=== PATIENT | male | born 1950 | race Caucasian/White ===

== ENCOUNTER 2017-11-08 14:28 | Outpatient (RCR) | payer MEDICARE, OTHER ==
[2016-03-24 08:56] VITALS: BMI 19.9
[~2017-11-08 14:28] MED LIST: ACE3 PO; ASPI81TA94 PO; CHOL10005 PO; CINN500C12 PO; CITA-156 PO; COQ10; GABA-549 PO; HYOS0.1224 SL; INSU100V24 SQ; L.AC1CAP6; LANI SUBQ; LEVO-85 PO; LEVO200T50 PO; LISI-353 PO; LISI-362 PO; METH-278 PO; METR-160 PO; ONDA4TAB PO; PANT40TA65 PO; PRAV20TA66 PO; SUCR1TAB51 PO; TIZA-128 PO; UBID30CA27 PO; VITA150T2 PO; ZINC; ZINC30TA5 PO; [UNRECOGNIZED DRUG - OTHER]
--- NOTE | 2017-11-09 15:55 | Medical Nutrition Therapy ---
Nutritional Education Nutrition Education Topic: Diabetic Nutrition Learning Readiness: Interested Teaching Methods: Discussion, Handout, Demonstration Response to Teaching: Verbalize understanding Teaching Recipient: Patient, Significant Other Nutrition Counseling: Reviewed free style alba and intserted sensor. Nutrition Monitoring & Eval RD Patient Assessment Time: 60 minutes Nutritional Comment: Procied 60 minutes diabetes education focusoing on CGM. Copies To Copies to: RICKIE CUETO ; CATE BONNER Nov 08, 2017 15:57
== END 2017-12-13 ==
LOC: DIET 14:28
PROVIDERS: ATTEND Nurse Practitioner Psychiatric/Mental Health
DX: Z71.3 Dietary counseling and surveillance (principal); E10.8 Type 1 diabetes mellitus with unspecified complications; Z79.4 Long term (current) use of insulin
CPT/HCPCS: G0108 ×2

== ENCOUNTER 2018-08-29 16:33 | Emergency (ER) | payer MEDICARE, OTHER ==
[2016-03-24 08:56] VITALS: Wt 68.0 kg
[~2018-08-29 16:33] MED LIST changes: -METR-160 PO; +METR500T15 PO
[2018-08-29 17:11] VITALS: BP 169/92
--- NOTE | 2018-08-29 17:13 | ER Report ---
History and Physical Time Seen By MD: 17:10 (JERICA SLATER MD) Time Seen By MD: 17:00 (ANA ROSA SLATER MD) HPI/ROS CHIEF COMPLAINT: Abdominal pain HISTORY OF PRESENT ILLNESS: 68-year-old male has had no abdominal pain for one week. Patient states he has had similar pain in the past. He states it is lorena ewhat similar to when he had a bleeding ulcer that required repair by Dr. Mitchell. Patient states pain has been gradual. It is located epigastric as well as left sided. Patient has not had vomiting or bloody or black stool. He has had nausea. He does not know what makes the pain better or worse. Pain is mild to moderate. He has not taken anything for the pain. He does say he has pantoprazole which he is no longer taking. He has not have chest pain or shortness of breath. Pain does not radiate to his back. REVIEW OF SYSTEMS: Constitutional: No fever, no chills. Eyes: No discharge. ENT: No sore throat. Cardiovascular: No chest pain, no palpitations. Respiratory: No cough, no shortness of breath. Gastrointestinal: above Genitourinary: No hematuria. Musculoskeletal: No back pain. Skin: No rashes. Neurological: No headache. Remainder of the 14 system rev: Yes (ANA ROSA SLATER MD) Allergies: Coded Allergies: morphine (Verified Allergy, Intermediate, ANAPHYLAXIS, 08/29/18) Home Meds Active Scripts Pantoprazole Sodium (PANTOPRAZOLE SODIUM) 40 Mg Tablet.dr, 40 MG PO BID, #60 TAB 3 Refills Prov:GERALD STOKES MD 03/30/16 Reported Medications Gabapentin (GABAPENTIN) 300 Mg Capsule, 100-200 MG PO BID, CAPSULE 03/23/16 Lisinopril (LISINOPRIL) 10 Mg Tablet, 10 MG PO QDAY, TAB 03/23/16 Insulin Lispro 100 Un/Ml Vial (HUMALOG 100 U/ML VIAL) 100 Unit/1 Ml Vial, UNIT SQ TIDAC, VIAL 05/13/14 Pravastatin Sodium (PRAVASTATIN SODIUM) 20 Mg Tablet, 20 MG PO QDAY 05/13/14 Levothyroxine Sodium (LEVOTHYROXINE SODIUM) 200 Mcg Tablet, 200 MCG PO QDAY 05/13/14 Citalopram Hydrobromide (CELEXA) 20 Mg Tablet, 20 MG PO QDAY, #5 TAB TAKE 1 TABLET BY MOUTH EVERY DAY 05/13/14 Discontinued Reported Medications Methocarbamol (METHOCARBAMOL) 500 Mg Tablet, 500 MG PO BID PRN for BACK PAIN 03/23/16 Hyoscyamine Sulfate (HYOSCYAMINE SULFATE) 0.125 Mg Tab.subl, 0.125 MG SL Q4-6H 03/23/16 Ondansetron (ZOFRAN ODT) 4 Mg Tab.rapdis, 8 MG PO Q8H PRN for NAUSEA, TAB.YASMINE 03/23/16 L.acidoph & Paracasei,B.lactis (Probiotic) 1 Each Capsule 03/23/16 Vitamin B Complex & Vit C No.4 (SUPER B COMPLEX) 150 Mg Tablet, 150 MG PO QDAY 03/23/16 Cholecalciferol (Vitamin D3) (VITAMIN D3) 1,000 Unit Tablet, 1000 UNIT PO QDAY, TAB 03/23/16 Zinc Gluconate (ZINC) 30 Mg Tablet, 30 MG PO DAILY 06/26/14 Ubidecarenone (COQ-10) 30 Mg Capsule, 30 MG PO DAILY, CAPSULE 06/26/14 Insulin Glargine (LANTUS) 100 Unit/Ml Soln, 10.5 UNIT SUBQ BIDAC 05/13/14 Cinnamon Bark (CINNAMON) 500 Mg Capsule, 1000 MG PO DAILY, CAPSULE 05/13/14 Discontinued Scripts Sucralfate (SUCRALFATE) 1 Gm Tablet, 1 GM PO ACHS1, #28 TAB Prov:GERALD STOKES MD 03/30/16 Acetaminophen/Codeine (TYLENOL #3 (OR EQUIV)) 1 Ea Tab, 1-2 EACH PO Q4H PRN for PAIN, #30 TAB Prov:GERALD STOKES MD 03/30/16 Reviewed Nurses Notes: Yes Old Medical Records Reviewed: Yes (ANA ROSA SLATER MD) Hx Smoking: Yes (HAS SMOKED SINCE AGE 21. (44 YEARS)) Smoking Status: Current: Every Day Smoker, Heavy Tobacco Smoker Exposure to Second Hand Smoke?: No Hx Substance Use Disorder: No Hx Alcohol Use: No (JERICA SLATER MD) Constitutional Vital Sign - Last 24 Hours 08/29/18 08/29/18 08/29/18 08/29/18 17:10 17:11 17:30 18:30 Temp 99.1 Pulse 81 65 58 Resp 20 B/P (MAP) 169/93 169/92 (117) Pulse Ox 93 97 93 O2 Delivery Room Air (ANA ROSA SLATER MD) Physical Exam General Appearance: The patient is alert, has no immediate need for airway protection and no signs of toxicity. [ ] Eyes: Pupils equal and round no pallor or injection. ENT, Mouth: Mucous membranes are moist. Respiratory: There are no retractions, lungs are clear to auscultation. Cardiovascular: Regular rate and rhythm. Gastrointestinal: abdomen is nondistended. Pt has epigatric ttp without rebound. He has left sided ttp Neurological: alert, no gross deficit Skin: Warm and dry, no rashes. Musculoskeletal: Extremities are nontender, nonswollen and have full range of motion. DIFFERENTIAL DIAGNOSIS: After history and physical exam differential diagnosis was considered for abdominal pain including but not limited to appendicitis, aaa, complication of pud, cholecystitis, gastritis and urinary tract infection. (ANA ROSA SLATER MD) Medical Decision Making Data Points Result Diagram: 08/29/18 1720 08/29/18 1720 Laboratory Hematology Test 08/29/18 17:08 08/29/18 17:20 Urine Color [place] Urine Clarity Cloudy Urine pH 5.0 pH (4.8-9.5) Urine Specific [place] 1.017 Urine Protein Negative mg/dL (NEGATIVE) Urine Glucose (UA) 50 mg/dL (NEGATIVE) Urine Ketones Trace mg/dL (NEGATIVE) Urine Blood Negative (NEGATIVE) Urine Nitrite Negative (NEGATIVE) Urine Bilirubin Negative (NEGATIVE) Urine Urobilinogen Negative mg/dL (0.2-1.9) Urine Leukocyte Esterase Trace (NEGATIVE) Urine RBC 2 /HPF (0-2/HPF) Urine WBC 1 /HPF (0-5/HPF) Urine Squamous Epithelial Cells Many /LPF (</=FEW) Urine Bacteria Negative /HPF (NONE-FEW) Urine Mucus Few /HPF (NONE-FEW) Red Blood Count 4.90 M/uL (4.00-5.60) Mean Corpuscular Volume 89.6 fL (80.0-96.0) Mean Corpuscular Hemoglobin 30.8 pg (26.0-33.0) Mean Corpuscular Hemoglobin Concent 34.3 g/dL (32.0-36.0) Red Cell Distribution Width 13.6 % (11.5-14.5) Mean Platelet Volume 9.1 fL (7.2-11.1) Neutrophils (%) (Auto) 73.6 % (39.4-72.5) Lymphocytes (%) (Auto) 16.0 % (17.6-49.6) Monocytes (%) (Auto) 9.0 % (4.1-12.4) Eosinophils (%) (Auto) 0.7 % (0.4-6.7) Basophils (%) (Auto) 0.7 % (0.3-1.4) Nucleated RBC Relative Count (auto) 0.1 /100WBC Neutrophils # (Auto) 8.4 K/uL (2.0-7.4) Lymphocytes # (Auto) 1.8 K/uL (1.3-3.6) Monocytes # (Auto) 1.0 K/uL (0.3-1.0) Eosinophils # (Auto) 0.1 K/uL (0.0-0.5) Basophils # (Auto) 0.1 K/uL (0.0-0.1) Nucleated RBC Absolute Count (auto) 0.01 K/uL Sodium Level 140 mmol/L (137-145) Potassium Level 4.3 mmol/L (3.5-5.0) Chloride Level 103 mmol/L (98-107) Carbon Dioxide Level 26 mmol/L (22-30) Blood Urea Nitrogen 19 mg/dl (9-21) Creatinine 1.40 mg/dl (0.66-1.25) Glomerular Filtration Rate Calc 50.5 Random Glucose 230 mg/dl (75-110) Calcium Level 9.5 mg/dl (8.4-10.2) Total Bilirubin 0.5 mg/dl (0.2-1.3) Aspartate Amino Transf (AST/SGOT) 22 U/L (0-35) Alanine Aminotransferase (ALT/SGPT) 43 U/L (0-56) Alkaline Phosphatase 98 U/L (0-126) Total Protein 6.8 g/dl (6.3-8.2) Albumin 3.8 g/dl (3.5-5.0) Lipase 126 U/L (23-300) Chemistry Test 08/29/18 17:08 08/29/18 17:20 Urine Color [place] Urine Clarity Cloudy Urine pH 5.0 pH (4.8-9.5) Urine Specific [place] 1.017 Urine Protein Negative mg/dL (NEGATIVE) Urine Glucose (UA) 50 mg/dL (NEGATIVE) Urine Ketones Trace mg/dL (NEGATIVE) Urine Blood Negative (NEGATIVE) Urine Nitrite Negative (NEGATIVE) Urine Bilirubin Negative (NEGATIVE) Urine Urobilinogen Negative mg/dL (0.2-1.9) Urine Leukocyte Esterase Trace (NEGATIVE) Urine RBC 2 /HPF (0-2/HPF) Urine WBC 1 /HPF (0-5/HPF) Urine Squamous Epithelial Cells Many /LPF (</=FEW) Urine Bacteria Negative /HPF (NONE-FEW) Urine Mucus Few /HPF (NONE-FEW) White Blood Count 11.4 k/uL (4.5-11.0) Red Blood Count 4.90 M/uL (4.00-5.60) Hemoglobin 15.1 g/dL (14.0-18.0) Hematocrit 43.9 % (42.0-52.0) Mean Corpuscular Volume 89.6 fL (80.0-96.0) Mean Corpuscular Hemoglobin 30.8 pg (26.0-33.0) Mean Corpuscular Hemoglobin Concent 34.3 g/dL (32.0-36.0) Red Cell Distribution Width 13.6 % (11.5-14.5) Platelet Count 193 K/uL (150-450) Mean Platelet Volume 9.1 fL (7.2-11.1) Neutrophils (%) (Auto) 73.6 % (39.4-72.5) Lymphocytes (%) (Auto) 16.0 % (17.6-49.6) Monocytes (%) (Auto) 9.0 % (4.1-12.4) Eosinophils (%) (Auto) 0.7 % (0.4-6.7) Basophils (%) (Auto) 0.7 % (0.3-1.4) Nucleated RBC Relative Count (auto) 0.1 /100WBC Neutrophils # (Auto) 8.4 K/uL (2.0-7.4) Lymphocytes # (Auto) 1.8 K/uL (1.3-3.6) Monocytes # (Auto) 1.0 K/uL (0.3-1.0) Eosinophils # (Auto) 0.1 K/uL (0.0-0.5) Basophils # (Auto) 0.1 K/uL (0.0-0.1) Nucleated RBC Absolute Count (auto) 0.01 K/uL Glomerular Filtration Rate Calc 50.5 Calcium Level 9.5 mg/dl (8.4-10.2) Total Bilirubin 0.5 mg/dl (0.2-1.3) Aspartate Amino Transf (AST/SGOT) 22 U/L (0-35) Alanine Aminotransferase (ALT/SGPT) 43 U/L (0-56) Alkaline Phosphatase 98 U/L (0-126) Total Protein 6.8 g/dl (6.3-8.2) Albumin 3.8 g/dl (3.5-5.0) Lipase 126 U/L (23-300) Urinalysis Test 08/29/18 17:08 Urine Color [place]ina Urine Clarity Cloudy Urine pH 5.0 pH (4.8-9.5) Urine Specific [place] 1.017 Urine Protein Negative mg/dL (NEGATIVE) Urine Glucose (UA) 50 mg/dL (NEGATIVE) Urine Ketones Trace mg/dL (NEGATIVE) Urine Blood Negative (NEGATIVE) Urine Nitrite Negative (NEGATIVE) Urine Bilirubin Negative (NEGATIVE) Urine Urobilinogen Negative mg/dL (0.2-1.9) Urine Leukocyte Esterase Trace (NEGATIVE) Urine RBC 2 /HPF (0-2/HPF) Urine WBC 1 /HPF (0-5/HPF) Urine Squamous Epithelial Cells Many /LPF (</=FEW) Urine Bacteria Negative /HPF (NONE-FEW) Urine Mucus Few /HPF (NONE-FEW) (ANA ROSA SLATER MD) ED Course/Re-evaluation ED Course 68-year-old male presents with one week of pain that has been constant. He states it is similar to prior PUD. His H&H is normal, he has mild leukocytosis, so CT is ordered. CT is without evidence of acute findings. He has No evidence of complication of PUD. However, pyloric thickening similar to prior is noted. Given patient's symptoms, while he does not have evidence of surgical emergency at this time, he requires close follow-up for consideration of repeat endoscopy. I recommend he restart his pantoprazole and follow-up closely. I given him Dr. Zurita's information for follow-up. Patient and family are comfortable with this plan and understands strict return precautions. Decision to Disposition Date: Aug 29, 2018 Decision to Disposition Time: 21:00 (ANA ROSA SLATER MD) Depart Departure Latest Vital Signs Vital Signs Date Time Temp Pulse Resp B/P (MAP) Pulse Ox O2 Delivery O2 Flow Rate FiO2 08/29/18 18:30 58 93 08/29/18 17:11 169/92 (117) 08/29/18 17:10 99.1 20 Room Air (ANA ROSA SLATER MD) Impression: Primary Impression: Abdominal pain Condition: Improved Disposition: HOME OR SELF-CARE Referrals: RICKIE CUETO (PCP) 5 Days MICHAELA WATSON MD 5 Days Patient Instructions: Epigastric Pain (ED) Additional Instructions: As we discussed, I recommend you restart your pantoprazole. I also recommend you obtain and take maalox as needed/instructed for worsening pain. Contact Dr. Watson's office for follow up for consideration of endoscopy, as Dr. Mims is no longer in the area. Please return for vomiting, bleeding, uncontrolled pain, or any concerns. Have your primary doctor recheck your blood sugar to ensure adequate glucose control. Problem Qualifiers Primary Impression: Abdominal pain Abdominal location: epigastric Qualified Codes: R10.13 - Epigastric pain JERICA SLATER MD Aug 29, 2018 17:13 ANA ROSA SLATER MD Aug 29, 2018 19:01
[2018-08-29] MEDS ORDERED: NS(*) 0.9% 1000 ML BAG 1,000 ML IV ONE (17:15)
[2018-08-29 17:34] LABS: PLATELET COUNT, AUTOMATED 193 K/uL (150-450)
[2018-08-29] MEDS ORDERED: fentaNYL CITR 100 MCG/2 ML AMP IVP ONE (17:50)
[2018-08-29] MEDS ORDERED: IOPAMIDOL 76% 100 ML INFUS BTL 100 ML ONE (17:59)
--- NOTE | 2018-08-29 18:43 | RADIOLOGY IMAGING REPORT ---
FACILITY: [facility] PATIENT NAME: Darren Wong : 1950 MR: [id number] V: [id number] EXAM DATE: ORDERING PHYSICIAN: JERICA SLATER TECHNOLOGIST: Location: [facility] Patient: Darren Wong : 1950 Visit/Account:[id number] Date of Sevice: 08/29/2018 CT ABDOMEN PELVIS W/ CON HISTORY:LLQ pain, dark stool, diverticulitis? TECHNIQUE: CT abdomen and pelvis with intravenous contrast. Contiguous axial images of the abdomen and pelvis was performed from the lung bases to the symphysis pubis. One of the following dose optimization techniques was utilized in the performance of this exam: Autom ated exposure control; adjustment of the mA and/or kV according to the patient's size; or use of an i terative reconstruction technique. Specific details can be referenced in the facility's radiology C T exam operational policy. CONTRAST: 75 cc of Isovue-[id number] COMPARISON: 03/23/2016 FINDINGS: Visualized lung bases: Negative. Hepatobiliary: Negative. Spleen: Negative. Adrenals: Negative. Kidneys/: Negative. Pancreas: Negative. GI: Stomach is filled with fluid. Thickening of the pylorus is stable from prior examination. There is colonic diverticulosis but no bowel obstruction or focal inflammation. Vessels/spaces/nodes: Atherosclerotic calcification of the aorta is noted. Bones/soft tissues: Postoperative changes are noted from posterior fusion L5-S1. 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 IMPRESSION: 1. Diverticulosis but no CT evidence for diverticulitis or bowel obstruction. 2. Thickening of the pylorus unchanged from prior examination could represent inflammation. Finding c ould be further evaluated with endoscopy as indicated. 3. Other chronic findings are described above. Report Dictated By: Quinn Zavala MD at 08/29/2018 6:31 PM Report E-Signed By: Quinn Zavala MD at 08/29/2018 6:37 PM WSN:[id number]
== END 2018-08-29 19:11 | disposition home or self-care (01) ==
LOC: ER 17:38
DX: R10.13 Epigastric pain (principal)
CPT/HCPCS: 74177; 81001; 83690; 85025; 96361; 96374; 99284; J3010; J7030; Q9967; 82040; 82247; 82310; 82374; 82435; 82565; 82947; 84075; 84132; 84155; 84295; 84450; 84460; 84520